=== PATIENT | male | born 1955 | race Caucasian/White ===

== ENCOUNTER 2020-05-17 23:56 | Emergency (ER) | payer BC ==
[~2020-05-17] VITALS: Ht 175.3 cm; Wt 108.0 kg
[2020-05-18] MEDS ORDERED: LISINOPRIL5 MG PO (00:17)
[2020-05-18] MEDS ORDERED: GLUCOPHAGE500 MG PO (00:18)
[2020-05-18] MEDS ORDERED: LISINOPRIL10 MG PO (00:18)
[2020-05-18] MEDS ORDERED: LIPITOR10 MG PO (00:19)
== END 2020-05-18 01:26 | disposition home or self-care (01) ==
LOC: ED 23:56
DX: R10.12 Left upper quadrant pain (principal); R31.9 Hematuria, unspecified; Z79.899 Other long term (current) drug therapy; Z79.84 Long term (current) use of oral hypoglycemic drugs
CPT/HCPCS: 74176; 80053; 81001; 83690; 85025; 96374; 96375; 99284-25; J1885; J2405

== ENCOUNTER 2025-03-10 11:59 | Emergency (ER) | payer BC ==
[~2025-03-10] VITALS: Ht 175.3 cm; Wt 75.0 kg
[~2025-03-10 11:59] MED LIST: ACETAMINOPHEN500 MG PO; ATORVASTATIN CA20 MG PO; COLCRYS0.6 MG PO; GLUCOPHAGE500 MG PO; HYDROXYZINE HCL25 MG PO; LIPITOR10 MG PO; LISINOPRIL10 MG PO; LISINOPRIL20 MG PO; LISINOPRIL5 MG PO; METFORMIN HCL750 MG PO; PERCOCET 5-3251 EACH PO; SERTRALINE HCL100 MG PO; SERTRALINE HCL25 MG PO; TAMSULOSIN HCL0.4 MG PO
[2025-03-10 12:09] LABS: BASOPHILS 0.1 % (0.2-1.2); EOSINOPHILS 0.1 % (0.8-7.0); LYMPHOCYTES 2.9 % (21.8-53.1); MCH 30.6 PG (25.7-32.2); MCHC 34.1 g/dL (32.3-36.5); MCV 89.9 fL (79.0-92.2); MONOCYTES 8.0 % (5.3-12.2); NEUTROPHILS 88.4 % (34.0-67.9); RBC 5.55 M/uL (4.63-6.08)
[2025-03-10 12:27] LABS: ALT (SGPT) 45.0 U/L (14-59); AST (SGOT) 87.0 U/L (15-37); GLOMERULAR FILTRATION RATE,EST 60.0 mL/min (>60); PROTEIN, TOTAL 7.5 g/dL (6.4-8.2); UREA NITROGEN 56.0 mg/dL (7-18)
[2025-03-10 15:28] LABS: BLOOD/HGB, URINE MODERATE (Negative); KETONE, URINE SMALL (Negative); LEUK ESTERASE, URINE NEGATIVE (negative); NITRITE, URINE NEGATIVE (negative)
[2025-03-10 15:35] LABS: BACTERIA, URINE NONE SEEN /hpf (negative); CASTS, URINE NONE SEEN \\lpf; CRYSTALS, URINE NONE SEEN (0-1+); EPITHELIAL CELLS, URINE SQUAMOUS 1+ /lpf (0-1+); REFLEX CULTURE, URINE No (No)
[2025-03-10] MEDS ORDERED: ACETAMINOPHEN 500 MG TAB PO ONE (17:15)
[2025-03-10 17:27] VITALS: BP 153/80
[2025-03-10] MEDS ORDERED: SODIUM CHLORIDE 0.9% 500 ML IV PRN (17:45)
--- NOTE | 2025-03-13 07:36 | EKG ---
[facility] [address] [facility] [place] [address] Signed Normal sinus rhythm Septal infarct (cited on or before 17-OCT-2022) Abnormal ECG When compared with ECG of 17-OCT-2022 07:32, Nonspecific T wave abnormality now evident in Inferior leads Nonspecific T wave abnormality, worse in Anterolateral leads QT has lengthened Confirmed by Roro Prather DO ([id number]) on 03/13/2025 7:36:31 AM Electronically Signed By: RORO PRATHER DO 03/13/25 0736 PATIENT NAME: DIXIE OTOOLE Electrocardiogram DATE OF : 51 PHYSICIAN: RORO PRATHER DO REPORT #: [id number] REPORT IS CONFIDENTIAL AND NOT TO BE RELEASED WITHOUT AUTHORIZATION
== END 2025-03-10 18:21 | disposition home or self-care (01) ==
LOC: ED 11:59
PROVIDERS: Emergency Medicine
DX: R53.1 Weakness (principal); E11.9 Type 2 diabetes mellitus without complications; I10 Essential (primary) hypertension; Z87.891 Personal history of nicotine dependence
CPT/HCPCS: 36415; 70450; 71045; 72125; 73030; 73502; 80053; 81001; 83735; 84484; 85025; 93005; 93010; 99285-25; A9270; J7040

== ENCOUNTER 2025-03-11 19:24 | Inpatient (IN) | payer BC ==
[~2025-03-11] VITALS: Ht 172.7 cm; Wt 78.0 kg
--- OUTSIDE RECORDS SUMMARY | 2025-03-11 19:31 | XMS ---
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 - 2 Visits in 30 Days CARE PROVIDERS There are no care providers on record at this time. Jaden has no Care Guidelines for this patient. Poly V[facility] (12 MO.) [facility] T[facility] 2 NOTE: Visits indicate total known visits. ED/C VISIT TRACKING (12 MO.) [facility] COMPLAINT: - FALL 03/10/2025 12:00 DAGO Mcclellan OR TYPE: Emergency COMPLAINT: - WEAKNESS INPATIENT VISIT TRACKING (12 MO.) No inpatient visits to display in this time frame [id number]
[2025-03-11 20:27] LABS: BASOPHILS 0.2 % (0.2-1.2); EOSINOPHILS 0 % (0.8-7.0); LYMPHOCYTES 4.3 % (21.8-53.1); MCH 30.5 PG (25.7-32.2); MCHC 33.9 g/dL (32.3-36.5); MCV 90.1 fL (79.0-92.2); MONOCYTES 8.8 % (5.3-12.2); NEUTROPHILS 86.3 % (34.0-67.9); RBC 4.85 M/uL (4.63-6.08)
[2025-03-11 20:43] LABS: ALT (SGPT) 52.0 U/L (14-59); AST (SGOT) 73.0 U/L (15-37); GLOMERULAR FILTRATION RATE,EST 69.0 mL/min (>60); PROTEIN, TOTAL 6.4 g/dL (6.4-8.2); UREA NITROGEN 52.0 mg/dL (7-18)
[2025-03-11] MEDS ORDERED: LACTATED RINGER'S 1,000 ML IV ONE ×2 (21:00→23:15)
[2025-03-11] MEDS ORDERED: ACETAMINOPHEN 500 MG TAB PO ONE (21:15)
[2025-03-11] MEDS ORDERED: KETOROLAC TROMETHAMINE 15 MG/ML VIAL IV ONE (23:45)
[2025-03-12 01:13] LABS: GLOMERULAR FILTRATION RATE,EST 74.0 mL/min (>60); UREA NITROGEN 45.0 mg/dL (7-18)
[2025-03-12] MEDS ORDERED: PANTOPRAZOLE SODIUM 40 MG/10 ML VIAL IV ONE (01:45)
[2025-03-12] MEDS ORDERED: LACTATED RINGER'S 1,000 ML IV ONE (02:00)
[2025-03-12] MEDS ORDERED: POTASSIUM CHLORIDE 10 MEQ TABCR PO ONE (02:00)
[2025-03-12] MEDS ORDERED: LIDOCAINE 2% VISCOUS 6 ML SYR TOP ONE (02:15)
[2025-03-12 02:35] LABS: BLOOD/HGB, URINE SMALL (Negative); KETONE, URINE SMALL (Negative); LEUK ESTERASE, URINE NEGATIVE (negative); NITRITE, URINE NEGATIVE (negative)
[2025-03-12 02:39] LABS: EPITHELIAL CELLS, URINE SQUAMOUS 1+ /lpf (0-1+)
[2025-03-12 02:40] LABS: BACTERIA, URINE RARE /hpf (negative); CASTS, URINE NONE SEEN \\lpf; CRYSTALS, URINE NONE SEEN (0-1+); REFLEX CULTURE, URINE No (No)
[2025-03-12 02:54] LABS: INR 1.1 (0.80-1.30); PROTIME 13.5 Sec (11.2-14.2)
[2025-03-12 03:32] LABS: ABO A; ANTIBODY SCREEN NEGATIVE; RH POSITIVE
[2025-03-12 04:50] LABS: BASOPHILS 0.4 % (0.2-1.2); EOSINOPHILS 1.6 % (0.8-7.0); LYMPHOCYTES 12.1 % (21.8-53.1); MCH 30.4 PG (25.7-32.2); MCHC 33.8 g/dL (32.3-36.5); MCV 90.1 fL (79.0-92.2); MONOCYTES 10.9 % (5.3-12.2); NEUTROPHILS 74.6 % (34.0-67.9); RBC 4.04 M/uL (4.63-6.08)
[2025-03-12] MEDS ORDERED: OXYCODONE HCL 5 MG TAB PO ONE ×2 (05:00→11:15)
[2025-03-12 05:05] LABS: GLOMERULAR FILTRATION RATE,EST 82.0 mL/min (>60); UREA NITROGEN 43.0 mg/dL (7-18)
[2025-03-12] MEDS ORDERED: LACTATED RINGER'S 1,000 ML IV SCH (06:00)
[2025-03-12 09:09] LABS: GLOMERULAR FILTRATION RATE,EST 91.0 mL/min (>60); UREA NITROGEN 38.0 mg/dL (7-18)
[2025-03-12] MEDS ORDERED: ACETAMINOPHEN 325 MG TAB PO PRN (13:00)
[2025-03-12 14:52] VITALS: BP 137/64
--- NOTE | 2025-03-12 15:32 | NUR ---
PATIENT TO UNIT VIA STRETCHER VIA NURSING. PATIENT TRANSFERRED TO BED VIA SLIDE SHEET. ASSESMENT COMPLETED, VITAL SIGNS COMPLETE, WEIGHT COMPLETE. LUNCH AT BEDSIDE. CALL LIGHT AND PERSONAL BELONGINGS IN REACH. PATIENT DENIES CONCERNS.
[2025-03-12 15:36] VITALS: BP 137/64
--- NOTE | 2025-03-12 16:49 | NUR ---
PATIENT IN BED, AT BEDSIDE. CALL LIGHT AND PERSONAL BELONGINGS IN REACH OF PATIENT. SCHEDULED MEDICATIONS ADMINISTERED.
[2025-03-12] MEDS ORDERED: ATORVASTATIN 20 MG TAB PO SCH (17:00)
[2025-03-12] MEDS ORDERED: PANTOPRAZOLE SODIUM 40 MG/10 ML VIAL IV SCH (17:41)
--- NOTE | 2025-03-12 17:47 | NUR ---
PATIENT IN BED, AT BEDSIDE. MD AT BEDSIDE. CALL LIGHT AND PERSONAL BELONGINGS IN REACH OF PATIENT. VERBAL ORDER RECEIVED TO CHANGE DIET TO CLEAR LIQUID.
[2025-03-12 18:38] VITALS: BP 146/62
--- NOTE | 2025-03-12 18:39 | NUR ---
PT CONFUSED, USED THE KIDNEY SHAPED SPIT BOWL FOR URINATING - MADE SURE THE URINAL WAS NEXT TO THE BED AND EDUCATED PT. HE CAN CARRY ON A CONVERSATION, BUT FORGETS THINGS VERY QUICKLY - FOR EXAMPLE HE ASKED MY NAME THREE TIMES ALMOST RIGHT IN A ROW. PT IN A GOOD MOOD. GAVE PT TWO GRANOLA BARS - HE DID NOT LIKE THE BQ PORK SERVED FOR DINNER. CALL LIGHT WITHIN REACH AND URINAL ON TABLE NEXT TO PT. PT HAS WATER AND REPORTS NEEDING NOTHING MORE AT THIS TIME.
--- NOTE | 2025-03-12 19:31 | NUR ---
REPORT RECEIVED FROM KVNG COFFMAN. pt RESTING IN BED AWAKE. IVF INFUSING WNL. pt DENIES NEEDS. BED ALARM SET AT THIS TIME.
[2025-03-12 20:02] VITALS: BP 138/96
--- NOTE | 2025-03-12 20:15 | NUR ---
BED ALARMING. PATIENT SCOOTING TOWARDS THE EDGE OF THE BED. 2 CERTIFIED SURGICAL FIRST ASSISTANT CHANGED WHOLE BED LINEN. CLEANED PATIENT. HUGH CARE DONE. FRESH PULL UPS PLACE AND GOWN. ROOM TIDIED. PATIENT SEEMED DIS ORIENTED AT THE START. PATIENT STATED "IM GOING DOWN STAIRS TO GET MY STUFF". PATIENT IS TALKATIVE. BED ALARM ON FOR SAFETY. THIS CERTIFIED SURGICAL FIRST ASSISTANT SHOWED THE CALL LIGHT BUTTON TO USE TO CALL FOR HELP FROM STAFF.
--- NOTE | 2025-03-12 20:20 | NUR ---
VSS. pt RESTING IN BED. ALERT AND ORIENTED TO ALL. CIWA 2, MILD TREMORS. pt RATES PAIN 9/10 IN RIGHT SHOULDER. ASSESSMENT COMPLETE. BOWEL TONES ACTIVE, ABD SOFT, NON-TENDER WITH PALPATION. IV SITE FLUSHED WNL. NEW BAG IVF INFUSING WNL PER ORDERS. SCDS ON. BED ALARM ON. CALL LIGHT IN REACH.
[2025-03-12 20:40] VITALS: BP 138/96
[2025-03-12] MEDS ORDERED: MELATONIN 3 MG TAB PO PRN (21:00)
[2025-03-12] MEDS ORDERED: LORazepam 2 MG/ML VIAL IV/IM PRN (21:00)
[2025-03-12 21:21] LABS: PHOSPHORUS, INORGANIC 2.4 mg/dL (2.5-4.9); TSH, 3RD GENERATION 0.415 uIU/mL (0.358-3.740)
[2025-03-12] MEDS ORDERED: HYDROCODONE/ACETA 5/325 TAB PO PRN (21:30)
--- NOTE | 2025-03-12 21:37 | NUR ---
PHONE CALL TO MD, UPDATED ON pt'S REPORTED PAIN. MD PLACING NEW ORDERS. AIRCRAFT SERVICER TO FLOOR FOR WRIST XRAY, UPDATED TO 3 VIEW PER PROTOCOL.
--- NOTE | 2025-03-12 23:21 | NUR ---
IV PUMP ALARMING. PUMP UNPLUGGED, PLUGGED IN. IVF INFUSING WNL. pt COMPLAINS OF PAIN. PRN MEDICATION AND LIDODERM PATCH ADMINISTERED.
[2025-03-12] MEDS ORDERED: LIDOCAINE HCL 4% 1 EACH PATCH TD SCH (23:30)
[2025-03-13] VITALS (12 sets, daily range): BP systolic 113–150; BP diastolic 63–89
--- NOTE | 2025-03-13 00:10 | NUR ---
PATIENT UP TO BATHROOM x2 USING 1P SBA WITH FWW TO VOID. PATIENT BACK TO BED. SCRATCH NOTED ON PATIENTS R BUTTOCK. ALLYVEN PLACED. PATIENT DENIES FURTHER NEEDS. CALL LIGHT IN REACH. BED ALARM ON.
--- NOTE | 2025-03-13 01:50 | NUR ---
pt DROWSY, RESTING IN BED. VSS. CONSENT SIGNED BY pt AND PLACED ON CHART. ABD ASSESSMENT COMPLETE. URINAL EMPTIED. NEW BAG IVF INFUSING WNL. CALL LIGHT IN REACH. BED ALARM ON. LIGHTS OFF IN ROOM.
--- NOTE | 2025-03-13 03:35 | NUR ---
CHECKED ON Pt, RESTING IN BED AWAKE WATCHING TV. NO DISTRESS NOTED.
--- NOTE | 2025-03-13 05:00 | NUR ---
bed alarm going off, pt attempting to get oob stating, "i have to go downstairs and get my stuff". pt reoriented to date/time. pt able to boost self back in bed, bed alarm resumed and call light in reach. urinal emptied, no additional needs.
--- NOTE | 2025-03-13 05:02 | NUR ---
PT AWAKE IN BED. CALL LIGHT WITHIN REACH. PT BELIEVES SOMEONE IS IN ROOM. PT MAKING CALLS FROM PERSONAL PHONE.
--- NOTE | 2025-03-13 05:15 | NUR ---
pt AWAKE, SENIOR ACTUARIAL ANALYST STATES pt REPORTS HALLUCINATIONS. NO HALLUCINATIONS REPORTED TO THIS RN AT THIS TIME. ALERT AND ORIENTED TO ALL. CIWA 3. PRN PAIN AND ANXIETY MEDICATION ADMINISTERED WITH SIP OF WATER. CALL LIGHT IN REACH. BED ALARM ON. LIGHTS OFF IN ROOM.
[2025-03-13 06:03] LABS: BASOPHILS 0.5 % (0.2-1.2); EOSINOPHILS 3.2 % (0.8-7.0); LYMPHOCYTES 12.8 % (21.8-53.1); MCH 30.5 PG (25.7-32.2); MCHC 34.0 g/dL (32.3-36.5); MCV 89.9 fL (79.0-92.2); MONOCYTES 11.5 % (5.3-12.2); NEUTROPHILS 71.5 % (34.0-67.9); RBC 4.06 M/uL (4.63-6.08)
[2025-03-13 06:18] LABS: ALT (SGPT) 43.0 U/L (14-59); AST (SGOT) 48.0 U/L (15-37); GLOMERULAR FILTRATION RATE,EST 96.0 mL/min (>60); PROTEIN, TOTAL 5.2 g/dL (6.4-8.2); UREA NITROGEN 19.0 mg/dL (7-18)
--- NOTE | 2025-03-13 07:40 | EKG ---
[facility] [address] [facility] [place] [address] Signed Sinus tachycardia with frequent premature ventricular complexes Anterior infarct (cited on or before 17-OCT-2022) Abnormal ECG When compared with ECG of 10-MAR-2025 12:17, (Unconfirmed) premature ventricular complexes are now present Questionable change in QRS axis Nonspecific T wave abnormality no longer evident in Inferior leads Nonspecific T wave abnormality no longer evident in Lateral leads QT has shortened Confirmed by Roro Prather DO ([id number]) on 03/13/2025 7:39:45 AM Electronically Signed By: RORO PRATHER DO 03/13/25 0740 PATIENT NAME: DIXIE OTOOLE Electrocardiogram DATE OF : 51 PHYSICIAN: RORO PRATHER DO REPORT #: [id number] REPORT IS CONFIDENTIAL AND NOT TO BE RELEASED WITHOUT AUTHORIZATION
--- NOTE | 2025-03-13 07:58 | NUR ---
PT AWAKE, ALERT AND ORINETED, SELINA, COOPERATIVE. MEDS GIVEN WITH SMALL AMOUNT OF WATER. IVF INFUSING LAC, PATCH TO L SHOULDER IN PLACE. CIWA DONE
[2025-03-13] MEDS ORDERED: MULTIVITAMINS THERAPEUTIC 1 EA TAB PO SCH (08:00)
[2025-03-13] MEDS ORDERED: FOLIC ACID 1 MG/0.2 ML ML IV SCH (08:00)
[2025-03-13] MEDS ORDERED: THIAMINE HCL 200 MG/2 ML VIAL IV SCH (08:00)
[2025-03-13] MEDS ORDERED: SODIUM PHOSPHATE 30 MMOL in DEXTROSE 5% 250 ML IV ONE (08:30)
[2025-03-13] MEDS ORDERED: MAGNESIUM SULFATE 2 GM/50 ML BAG IV ONE (08:30)
--- NOTE | 2025-03-13 08:38 | NUR ---
ciwa was 2. Bed alrms in place. visiting with female friend.
--- NOTE | 2025-03-13 08:58 | NUR ---
pt up to BRP 1PA, unsteady gait. voided, back to bed. tolerated well
[2025-03-13] MEDS ORDERED: TAMSULOSIN HCL 0.4 MG CAP PO SCH (09:00)
[2025-03-13] MEDS ORDERED: SERTRALINE HCL 50 MG TAB PO SCH (09:00)
[2025-03-13] MEDS ORDERED: LIDOCAINE HCL 4% 1 EACH PATCH TD SCH (09:00)
--- NOTE | 2025-03-13 09:20 | NUR ---
Spoke with Gonzales and his , Millie. They have been for many years. 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 He stays in his home and also does not answer his phone. He does state he saw his pcp in the last month or two. He has a walker. He is a and believes he is service connected. At this time, he plans on selling his home. He would like to go to [facility] for 20 days, then move closer to family near [place]. Per pt has LT Medicaid. When I asked them about the assessment, he does not remember any evaluations. I will contact [facility] and [facility]. Pt will have EGD today per Dr. Issa.
--- NOTE | 2025-03-13 10:31 | NUR ---
pt up in chair, medicated with 2 norco
--- NOTE | 2025-03-13 10:55 | NUR ---
DR TORRES IN ROOM
--- NOTE | 2025-03-13 11:20 | CONS ---
[facility] [address] [place], [place] [address] Signed DATE OF CONSULTATION: 03/12/2025 REQUESTING PHYSICIAN: Dr. Martin. PROBLEM: Melena and anemia (symptomatic). HISTORY: This 69-year-old white man lives in [place]. He is known to me from the past and undergone laparoscopic cholecystectomy in 2022. Quite notably, he underwent sigmoid colectomy my brother Artemio Torres in [place], [place] in 2008 for perforated diverticulitis. The patient is well aware of all that. He presented to the emergency room, was evaluated by Dr. Heck with at approximately 8:47 p.m., having been brought to the emergency room by EMS services, found "down on the floor" by a neighbor. The patient does live alone. He is but , she has not lived with him since May. She is caring for her elderly ailing mother and lives near [place]. The patient has been seen in emergency room the day before and brought into the hospital for a ground level fall. Radiographic workup included right shoulder, right hip CT scan of the C-spine, head, and chest x-ray, which was notable only for degenerative disease in cervical spine and severe osteoarthritis of the hip. He had no fractures. Labs on evaluation today showed a white count elevated at 17.2, creatinine of 1.27. His CBC showed an initial hematocrit of 36.9, but his hematocrit the day before was 43.7. The patient admits to persistent use of Motrin for epigastric pain. The patient was admitted for further evaluation and care. Quite notably, the patient does have some persistent epigastric pain. He has had no hematemesis. He denies dysphagia, but he has persistent epigastric pain otherwise. PAST MEDICAL HISTORY: Notable for a cholecystectomy as described as well as sigmoid colectomy emergently for perforation. He does have BPH symptoms. He also has hypertension. MEDICATIONS: Reported medications at time of admission include: 1. Flomax. 2. Sertraline. 3. Hydroxyzine. 4. Atorvastatin. 5. Colchicine. 6. Lisinopril. Electronically Signed By: JENNIFFER TORRES MD 03/13/25 1120 PATIENT NAME: DIXIE OTOOLE CONSULTATION DATE OF : 51 REPORT #: [id number] PHYSICIAN: JENNIFFER TORRES MD PCP: DALTON GODOY MD REPORT IS CONFIDENTIAL AND NOT TO BE RELEASED WITHOUT AUTHORIZATION [address] [address] Signed REVIEW OF SYSTEMS: He denies any shortness of breath or chest pain at this time. He has no dysphagia or dysuria. He definitely has had black stool. PHYSICAL EXAMINATION: GENERAL: This is an elderly white male with a full white lambert. He is very gregarious and engaging, but does have what might appear to be short-term memory loss to some degree. VITAL SIGNS: At time of my evaluation showed a blood pressure 134/68, pulse of 71, respirations 17, O2 saturation 100% on 2 L nasal cannula oxygen. Trachea is midline. CHEST: Clear. HEART: Regular without murmur. ABDOMEN: Nondistended, generally soft. There is no focal mass or tenderness. EXTREMITIES: No clubbing, cyanosis, or edema. ASSESSMENT: The patient very likely has a peptic ulcer, which he has been treating with Motrin instead of antiulcer medication. He now has what appears to be melena based on clinical history and his episodic hypotension previously noted by the emergency room and with a fall in hematocrit to 34.8. Quite notably yesterday at about the same time is 43.7. His platelet count is lower at 118,000, previously 173,000. The patient needs upper endoscopy to affirm the diagnosis. In the meantime, treatment with PPI medication and very likely Carafate would be appropriate. Review of his medications at admission currently includes Flomax, sertraline, pantoprazole IV, hydroxyzine, atorvastatin, melatonin, Tylenol, Zofran, and infusion of Ringer's lactate solution at 200 mL an hour. We will plan for upper endoscopy tomorrow probably mid day. The risk of bleeding, infection, and perforation were reviewed with him in this regard. He will certainly have a CBC in the morning as well. If the patient should " cut loose" with bledding then more urgent endoscopic intervention can be done. Jenniffer Torres MD JM/MODL /[id number] Electronically Signed By: JENNIFFER TORRES MD 03/13/25 1120 PATIENT NAME: DIXIE OTOOLE CONSULTATION DATE OF : 51 REPORT #: [id number] PHYSICIAN: JENNIFFER TORRES MD PCP: DALTON GODOY MD REPORT IS CONFIDENTIAL AND NOT TO BE RELEASED WITHOUT AUTHORIZATION [address] [address] Signed cc: Dr. Mario Heck Copies: ~ Electronically Signed By: JENNIFFER TORRES MD 03/13/25 1120 PATIENT NAME: DIXIE OTOOLE CONSULTATION DATE OF : 51 REPORT #: [id number] PHYSICIAN: JENNIFFER TORRES MD PCP: DALTON GODOY MD REPORT IS CONFIDENTIAL AND NOT TO BE RELEASED WITHOUT AUTHORIZATION
[2025-03-13] MEDS ORDERED: PHARMACY RENAL DOSE ADJUSTMENT 1 DOSE MISC PO SCH (12:00)
[2025-03-13] MEDS ORDERED: LIDOCAINE HCL 2% 5 ML SDV ONE (12:49)
[2025-03-13] MEDS ORDERED: POLYETHYLENE GLYCOL 3350 BOTTLE PO ONE (13:30)
--- NOTE | 2025-03-13 13:36 | NUR ---
03/13/25 1336 [place] 1318-PATIENT ARRIVED TO PACU ON 4L NC RR EVEN. PATIENT REACTIVE TO VERBAL STIMULI EYES CLOSED NOT FOLLOWING COMMANDS. IVF INFUSING. SR HR 70'S. 1320-PATIENT CONTINUES TO HAVE EYS CLOSED TRYING TO GET BP ON RIGHT ARM AND PATIENT BENDING RIGHT ARM NOT FOLLOWING COMMANDS. ISAIAH BRAVO AT BEDSIDE ASSISTING. PATIENT ORIENTED TO PACU 1325-ABLE TO GET BP READING. PATIENT OPENING EYES REPORTS "OW" WHEN RN ASKED PATIENT REPORT" MY RIGHT HIP HURTS AT TIMES" PATIENT REPOSITIONING SELF IN BED. GLUCOSE CHECKED 93 1332-PATIENT AWAKE RA 96% RR EVEN. MOVING ALL EXTRMITIES ORIENTED TO PACU PATIENT IS ORIENTED X3.
--- NOTE | 2025-03-13 13:45 | NUR ---
PT STILL IN OR
--- NOTE | 2025-03-13 14:07 | NUR ---
1400 back to room for pacu
--- NOTE | 2025-03-13 14:32 | NUR ---
Spoke with aNt at the [facility]. Pt is not service connected and also is not established with the VA programs. I then spoke with Alva Barajas at [facility]. Pt was seen by [facility], but has not completed any assessments for LT Medicaid. The did call, but declined an assessment when she was notified they would also look at her resources since they are still . I will fu with [place].
--- NOTE | 2025-03-13 14:57 | NUR ---
AWAKE, ON ROOM AIR, CPOX ON, IV WENT BACD, WILL RESTART. NO C/O PAIN, VISITING WITH FAMILY. AWARE OF NEED TO DRINK 2 BOTTLES OF GATORADE PER BOWEL CARE PRIOR TO COLONOSPCOPY IN AM, STATED UNDERSTANDING
--- NOTE | 2025-03-13 15:35 | NUR ---
awake, new iv site RA
--- NOTE | 2025-03-13 15:39 | NUR ---
Spoke with Millie and Gonzales. He is getting a new IV start. She spoke with the [facility] by phone and [facility]. She hoping to get Gonzales established with the Va within 20 days. She does not want to provide her financial info to the state as they are still . She is leaving in the AM to go to [place] as her mom is ill. She asks I call her for info.
--- NOTE | 2025-03-13 18:05 | NUR ---
pt working with PT, up to BRp, incontinent of large amount of soft stool, skin care and gown changed, back to chair, IVf infusing w/o problems, cpox at bedside, on clear liquids. Medicated with 2 [place] per 8/10 R shoulder pain
--- NOTE | 2025-03-13 19:32 | NUR ---
REPORT RECEIVED FROM DAY SHIFT RN. PATIENT RESTING IN BED. BED ALARM ON. CALL LIGHT IN REACH.
--- NOTE | 2025-03-13 20:23 | NUR ---
PT LYING IN BED WATCHING TV. VITALS DONE, CALL LIGHT IN REACH WITH NO NEEDS AT THIS TIME.
[2025-03-13] MEDS ORDERED: LIDOCAINE PATCH REMOVAL 1 EA TD SCH (21:00)
--- NOTE | 2025-03-13 21:54 | NUR ---
BED ALARM ANSWERED. PT NEEDED TO USE BATHROOM. ASSISTANT HALL DIRECTOR 1PA WITH FWW TO BATHROOM. PT HAD BM AND ASSISTED BACK TO BED. PT STATES NO FURTHER NEEDS AT THIS TIME. CALL LIGHT WITHIN REACH AND BED ALARM ON.
--- NOTE | 2025-03-13 22:35 | NUR ---
BED ALARM ANSWERED. PT NEEDED TO USE BATHROOM. PT 1PA WITH FWW TO BATHROOM. PT HAD BM AND ASSISTED BACK TO BED. PT REMINDED OT KEEP DRINKING THE BOWL PREP GATORADE. PT STATES NO FURTHER NEEDS AT THIS TIME. CALL LIGHT WITHIN REACH AND BED ALARM ON.
--- NOTE | 2025-03-13 22:47 | NUR ---
PATIENT REQUESTING PAIN MEDICATION FOR 12/23 R SHOULDER/BACK PAIN. PRN PAIN MEDICATION ADMINISTERED PER PATIENT REQUEST. IV INFUSING WNL. PATIENT DENIES FURTHER NEEDS. CALL LIGHT IN REACH. BED ALARM ON.
--- NOTE | 2025-03-13 23:01 | NUR ---
CALL LIGHT ANSWERED. PATIENT UP TO BED USING 1P SBA AND FWW TO HAVE BM. PATIENT BACK TO BED. PATIENT DENIES FURTHER NEEDS AT THIS TIME. BED ALARM ON. CALL LIGHT IN REACH.
[2025-03-14] VITALS (15 sets, daily range): BP systolic 114–152; BP diastolic 68–98
--- NOTE | 2025-03-14 00:05 | NUR ---
x2 BOWEL PREP BOTTLES COMPLETED. PATIENT NPO AT THIS TIME.
--- NOTE | 2025-03-14 01:24 | NUR ---
CHEMICAL MAKER OBTAINED VITALS AND I&O. PT STATES NO NEEDS AT THIS TIME. CALL LIGHT WITHIN REACH AND BED ALARM ON.
--- NOTE | 2025-03-14 03:43 | NUR ---
PATIENT RESTING IN BED ON BACK WITH EYES CLOSED. RESPIRATIONS EVEN AND UNLABORED. CALL LIGHT IN REACH.
--- NOTE | 2025-03-14 05:32 | NUR ---
PT LYING IN BED WATCHING TV. VITALS DONE. CALL LIGHT IN REACH, NO NEEDS AT THIS TIME.
[2025-03-14 05:37] LABS: BASOPHILS 0.4 % (0.2-1.2); EOSINOPHILS 5.1 % (0.8-7.0); LYMPHOCYTES 13.3 % (21.8-53.1); MCH 30.4 PG (25.7-32.2); MCHC 34.0 g/dL (32.3-36.5); MCV 89.6 fL (79.0-92.2); MONOCYTES 12.9 % (5.3-12.2); NEUTROPHILS 67.9 % (34.0-67.9); RBC 4.04 M/uL (4.63-6.08)
[2025-03-14 05:58] LABS: ALT (SGPT) 42.0 U/L (14-59); AST (SGOT) 41.0 U/L (15-37); GLOMERULAR FILTRATION RATE,EST 98.0 mL/min (>60); PHOSPHORUS, INORGANIC 3.6 mg/dL (2.5-4.9); PROTEIN, TOTAL 5.1 g/dL (6.4-8.2); UREA NITROGEN 13.0 mg/dL (7-18)
[2025-03-14] MEDS ORDERED: MORPHINE SULFATE 4 MG/ML VIAL IV PRN (06:15)
--- NOTE | 2025-03-14 06:15 | NUR ---
RETURN PHONE CALL FROM DR TORRES. pt REQUESTING PAIN MEDICATION AND IS NPO FOR PLANNED SCOPE. TELEPHONE ORDER READ BACK FOR MORPHINE IV 2-4MG Q1H PRN FOR PAIN.
--- NOTE | 2025-03-14 06:20 | OR ---
[facility] [address] [place], [place] [address] Signed DATE OF OPERATION: 03/13/2025 SURGEON: Jenniffer Trores MD PREOPERATIVE DIAGNOSIS: Melena with epigastric pain and excessive NSAID use. POSTOPERATIVE DIAGNOSES: 1. No evidence of ulcer or neoplasm of stomach, esophagus or duodenum. 2. Possible healed Liyah-Middleton tear. PROCEDURE: Upper endoscopy with biopsy. ANESTHESIA: Intravenous sedation, propofol, Gerard Church CRNA. INDICATION: This 69-year-old white man is a patient of Dr. Dalton Godoy and admitted by Dr. Martin as the patient presented to the emergency room with tachycardia, hypotension and reported black stool. He had no hematemesis. In this presentation, hematocrit was 43.7, which drifted to 36.5 by today. He has had no melena since admission or hematemesis. The patient has been taking Motrin for persistent epigastric pain and has not been on any antiulcer medication prior to his evaluation and treatment at [facility] at this time. He is now to undergo upper endoscopy to identify source of upper gastrointestinal bleeding. He understands the risk of bleeding, infection, and perforation and wished to proceed. FINDINGS: There was no lesion to account for the bleeding. However, there was a small lesion of the distal esophagus, which was linear in configuration and may or may not represent a healed or healing Liyah-Middleton tear. There is certainly no blood in the GI tract. Stomach and duodenum, and esophagus were otherwise normal. There was some question of superficial venous channels of the mid esophagus, but no linda varices so far as could be told. DESCRIPTION OF PROCEDURE: The patient was brought to the surgical endoscopy suite and placed in lateral decubitus position, given topical lidocaine after pharyngeal anesthesia. He was given intravenous sedation with propofol infusional technique. A bite block was placed. An Olympus video Electronically Signed By: JENNIFFER TORRES MD 03/14/25 0520 Electronically Signed By: JENNIFFER TORRES MD 03/14/25 1459 PATIENT NAME: DIXIE OTOOLE OPERATIVE REPORT DATE OF : 51 REPORT #: [id number] PHYSICIAN: JENNIFFER TORRES MD PCP: DALTON GODOY MD REPORT IS CONFIDENTIAL AND NOT TO BE RELEASED WITHOUT AUTHORIZATION [facility] [address] [place], [place] [address] Signed upper endoscope was passed in the hypopharynx. The vocal cords were normal. Scope was passed in the esophagus, which on first evaluation appeared normal. Scope was passed in the stomach, which was insufflated with air. There was no sign of coffee-ground material nor blood or any other abnormality. The pylorus was normal. Scope was passed through into the duodenum. The second and third portions of the duodenum were normal as was the bulbar portion. The scope was withdrawn and biopsies taken of the antrum for both REBEL and pathologic testing. Retroflexed view showed a small hiatal hernia. There was no sign of gastric varices or lesion more proximally. The scope was straightened and withdrawn to the distal esophagus where a somewhat linear appearing mucosal lesion was noted. Photographs were taken and biopsies were obtained as well. This may represent a healing Liyah-Middleton tear, but it certainly was not acute and absolutely was not bleeding. Additional biopsies were taken. Further withdrawal showed no other findings of concern. The scope was removed. The patient was taken to recovery room in good condition. CONCLUDING DIAGNOSIS: No clear evidence of lesion on upper gastrointestinal endoscopy that would account for bleeding, particularly melena. PLAN: We will plan for colonoscopy tomorrow after bowel prep today. MD CESAR Jimenez/DIMITRIOSL /[id number] cc: MD Dr. Mario Tiwari Copies: DALTON GODOY DMD ~ Electronically Signed By: JENNIFFER TORRES MD 03/14/25 0520 Electronically Signed By: JENNIFFER TORRES MD 03/14/25 1459 PATIENT NAME: DIXIE OTOOLE OPERATIVE REPORT DATE OF : 51 REPORT #: [id number] PHYSICIAN: JENNIFFER TORRES MD PCP: DALTON GODOY MD REPORT IS CONFIDENTIAL AND NOT TO BE RELEASED WITHOUT AUTHORIZATION
--- NOTE | 2025-03-14 06:38 | NUR ---
CALL LIGHT ANSWERED. PT NEEDED TO USE BATHROOM. ORTHO TECH 1PA WITH FWW TO BATHROOM. PT VOIDED AND HAD BM. PT ASSISTED BACK TO BED. PT STATES NO FURTHER NEEDS AT THIS TIME. CALL LIGHT WITHIN REACH AND BED ALARM ON.
--- NOTE | 2025-03-14 06:50 | NUR ---
NEW IVF BAG HUNG PER ORDER. PAIN MEDICATION GIVEN FOR 8/10 PAIN PER REQUEST OF PRIMARY RN AND PATIENT REQUEST. PATIENT RESTING IN BED AND WATCHING TV. IVF CONINTUING TO INFUSE WITHOUT DIFFICULTY, RESPIRATIONS EVEN AND UNLABORED. NO NEEDS, CALL LIGHT IN REACH
[2025-03-14] MEDS ORDERED: CEFAZOLIN SODIUM 2 GM in SODIUM CHLORIDE 0.9% 100 ML IV SCH (07:00)
--- NOTE | 2025-03-14 07:27 | NUR ---
Pt awake, watching tv, no c/o pain at this time. Repositions self in bed. IVF infsing w/o problems. Tolerating NPO status. repositions self in bed.
--- NOTE | 2025-03-14 07:42 | NUR ---
PATIENT IN BED AT THIS TIME. FINANCIAL SECRETARY CHARTED HOURLY ROUNDS. PATIENT DECLINED CHAIR AT THIS TIME. CALL LIGHT WITHIN REACH, NO FURTHER NEEDS.
--- NOTE | 2025-03-14 08:00 | NUR ---
UR CLINICAL REVIEW: MEETS INPT FOR SUBSTANCE-RELATED DISORDERS FOR ETOH RECURRENT FALLS, HALLUCINATIONS NOTED, TREMORS, HISTORY OF WITHDRAWAL WITH SEIZURES, STATES INABILITY TO CARE FOR SELF, PT/OT STATES SNF NEEDED NEED FOR IV FLUIDS, IV MEDS [facility] PPO INPT 03/12/25 @ 1304 ORDER MATCHES REG AUTH PENDING, CLINICALS SENT 03/13/25 DC TO SNF WHEN MEDICALLY READY 03/19/25
--- NOTE | 2025-03-14 08:07 | NUR ---
DC REVIEW: CONTINUES TO NEED IV FLUIDS, COLONOSCOPY TODAY, PLANNING FOR SNF PLACEMENT AT DC SPOUSE WORKING ON PLACEMENT IN ASSISTED LIVING AFTER DC ADD: 03/18/25
--- NOTE | 2025-03-14 09:52 | NUR ---
PATIENT IN BED AT THIS TIME. CHIEF DIETITIAN CHARTED VITALS AND I&O'S. CALL LIGHT WITHIN REACH, NO FURTHER NEEDS.
[2025-03-14] MEDS ORDERED: POTASSIUM CHLORIDE 10 MEQ TABCR PO ONE (10:00)
[2025-03-14] MEDS ORDERED: MAGNESIUM SULFATE 2 GM/50 ML BAG IV ONE (10:00)
--- NOTE | 2025-03-14 10:32 | NUR ---
UPDATES SENT TO [facility] AND [facility]. PENDING SNF ACCEPTANCE.
[2025-03-14] MEDS ORDERED: CELEBREX200 MG PO (10:55)
--- NOTE | 2025-03-14 11:55 | NUR ---
MED REC COMPLETE
--- NOTE | 2025-03-14 13:43 | NUR ---
working with PT and speech therapy in room, Still NPO waiting to go down for colonoscopy
--- NOTE | 2025-03-14 14:01 | NUR ---
Pt in chair, working with ST. Up to BRP, small liquid bm. voidied QS using urinal. Tolerating NPO status. Pleasant and cooperative. Down to OR via stretcher at thist grecia.
[2025-03-14] MEDS ORDERED: LIDOCAINE HCL 2% 5 ML SDV ONE ×2 (14:15→15:01)
--- NOTE | 2025-03-14 14:46 | NUR ---
03/14/25 1446 Magui Yee PATIENT ARRIVES IN PACU WITH ORAL AIRWAY IN PLACE. HE IS UNRESPONSIVE TO MY VOICE AND TOUCH. HE IS MOVING HIS ARMS AND LEGS IN A SPORADIC FASHION.
[2025-03-14] MEDS ORDERED: ROCURONIUM BROMIDE 50 MG/5 ML SYR ONE (15:06)
[2025-03-14] MEDS ORDERED: fentaNYL citrate 100 MCG/2 ML VIAL ONE (15:06)
[2025-03-14] MEDS ORDERED: SUCCINYLCHOLINE IN 0.9% NACL 200 MG/10 ML SYRINGE ONE (15:06)
[2025-03-14] MEDS ORDERED: DEXAMETHASONE SOD PHOS 4 MG/ML VIAL ONE (15:09)
--- NOTE | 2025-03-14 15:13 | NUR ---
back from PACU
--- NOTE | 2025-03-14 16:41 | NUR ---
IN BED C/O R HIP, BACK AND TESTICLULAR PAIN. MEDICATED WITH 2 NORCO
--- NOTE | 2025-03-14 17:48 | NUR ---
sitting up edge of bed eating, no further c/o. On room air, CPOX at bedside post op. uring urinal, voiding QS, much more alert and oriented.
--- NOTE | 2025-03-14 18:29 | NUR ---
pt calm, watchingt tv, playing with phone. on room air, post op cpox at bedside. IVF infusing w/o problems. using urinal, no further c/opain, lidocaine patch R shoulde rin place. Ate 25% dinner, tolerating liquids well. customer supply chain analyst in room earlier talking to pt. Ensure with meals added per customer supply chain analyst. Pt repositions self in bed
--- NOTE | 2025-03-14 19:53 | NUR ---
REPORT RECEIVED FROM PEPE CALDERON. pt RESTING IN THE BED. BOARD UPDATED. pt DENIES ANY NEEDS AT THIS TIME. CALL LIGHT WITHIN REACH.
--- NOTE | 2025-03-14 20:35 | NUR ---
PT LYING IN BED WATCHING TV. VITALS DONE, URINAL EMPTIED, WATER REFILLED. CALL LIGHT IN REACH, NO NEEDS AT THIS TIME.
--- NOTE | 2025-03-14 21:20 | NUR ---
ASSESSMENT AND VITAL SIGNS DONE. pt C/O 11/22 PAIN. PRN PAIN MEDS ADMINISTERED. pt RESTING IN THE BED. IV ASSESSED, WNL. ICE WATER REFRESHED. pt DENIES ANY OTHER NEEDS AT THIS TIME. CALL LIGHT WITHIN REACH.
--- NOTE | 2025-03-14 23:42 | NUR ---
pt RESTING IN THE BED WITH EYES CLOSED. RR EVEN AND UNLABORED. CALL LIGHT WITHIN REACH.
[2025-03-15] VITALS (9 sets, daily range): BP systolic 109–160; BP diastolic 48–78
--- NOTE | 2025-03-15 01:29 | NUR ---
DIRECTOR SOFTWARE DEVELOPMENT OBTAINED VITALS AND I&O. PT STATES NO NEEDS AT THIS TIME. CALL LIGHT WITHIN REACH AND BED ALARM ON.
--- NOTE | 2025-03-15 01:53 | NUR ---
VITAL SIGNS DONE. pt RESTING IN THE BED. pt DENIES ANY NEEDS AT THIS TIME. CALL LIGHT WITHIN REACH.
--- NOTE | 2025-03-15 03:34 | NUR ---
pt RESTING IN THE BED WITH EYES CLOSED. RR EVEN AND UNLABORED. CALL LIGHT WITHIN REACH.
--- NOTE | 2025-03-15 04:02 | NUR ---
PT MEDICATED W/ 2 PRN NORCO TABS FOR C/O RIGHT SCIATICA PAIN
--- NOTE | 2025-03-15 07:04 | NUR ---
REPORT RECEIVED FROM BASS FISHER KVNG JAIME. PATIENT IS LYING IN BED WITH EYES CLOSED AND RESPIRATIONS ARE EVEN AND UNLABORED. CALL LIGHT AND PERSONAL BELONGINGS ARE WITHIN REACH.
--- NOTE | 2025-03-15 07:15 | NUR ---
FAXED UPDATES TO [facility]
[2025-03-15] MEDS ORDERED: FOLIC ACID 1 MG TAB PO SCH (08:00)
[2025-03-15] MEDS ORDERED: THIAMINE HCL 100 MG TAB PO SCH (08:00)
--- NOTE | 2025-03-15 08:37 | NUR ---
PATIENT IS LYING IN BED WITH EYES OPEN AND RESPIRATIONS ARE EVEN AND UNLABORED. PATIENT REPORTS HER PAIN IS A 9/10 IN THE RIGHT LEG/GROIN. PATIENT IS REQUESTING SOMETHING FOR PAIN. PATIENT STATED NO FURTHER NEEDS AT THIS TIME. CALL LIGHT AND PERSONAL BELONGINGS ARE WITHIN REACH.
--- NOTE | 2025-03-15 09:17 | NUR ---
CLEANED UP ROOM. PT AMBULATED TO THE TOILET. PT DID ORAL CARE, SKIN CARE AND AM CARE. PARTIAL LINEN CHANGE COMPLETED. TRASH REMOVED FROM ROOM.
--- NOTE | 2025-03-15 09:35 | NUR ---
SPOKE WITH [facility] THIS AM REGARDING PATIENT. THEY CAN ACCEPT, THEY ARE CURRENTLY WORKING ON INSURANCE AUTHORIZATION. PATIENT, RN AND DR. CASTRO UPDATED.
--- NOTE | 2025-03-15 10:19 | NUR ---
PATIENT IS LYING IN BED WITH HOB ELEVATED. PATIENT WITH EYES OPEN AND RESPIRATIONS ARE EVEN AND UNLABORED. PATIENT IS WATCHING TV. CALL LIGHT AND PERSONAL BELONGINGS ARE WITHIN REACH.
--- NOTE | 2025-03-15 12:14 | OR ---
[facility] [address], [place] [address] Signed DATE OF OPERATION: 03/14/2025 SURGEON: Jenniffer Torres MD PREOPERATIVE DIAGNOSIS: Recent melena, normal upper endoscopy. POSTOPERATIVE DIAGNOSIS: Sigmoid diverticulosis, no evidence of lesion to account for bleeding. No active bleeding. PROCEDURE: Total colonoscopy to cecum. ANESTHESIA: Intravenous sedation, propofol infusion, Aguila Roberts CRNA. INDICATIONS: This 69-year-old white man was admitted by the hospitalist, Dr. Martin with reports of dark black stool considered melena and a falling hematocrit from 45 to 37. He had no associated hematemesis, but he did note that he had been taking increasing doses of nonsteroidal medication for epigastric pain, which of course did not help. He did undergo upper endoscopy yesterday, which showed a linear limited lesion of the esophagogastric junction, which may or may not have represented a healing Liyah-Middleton tear. There were no other findings of note, and certainly no sign of active or recent bleeding. On the basis of those findings or lack thereof, I have recommended colonoscopy being undertaken. The risks of bleeding, infection, and perforation were reviewed with him. He understands and wished to proceed. FINDINGS: The prep was good. Complete colonoscopy was undertaken of the cecum with full intubation of the cecum. He had diverticula of the sigmoid and left colon, but no polyps, colitis, or other cause of bleeding. Retroflexed view did confirm some internal hemorrhoidal changes. DESCRIPTION OF PROCEDURE: The patient was brought to the endoscopy suite and placed in lateral decubitus position, given intravenous sedation to the point of slurred speech and nystagmus with full cardiopulmonary monitoring by the Therapeutic Dietitian with propofol for sedation. Digital rectal examination was normal. Electronically Signed By: JENNIFFER TORRES MD 03/15/25 1214 PATIENT NAME: DIXIE OTOOLE OPERATIVE REPORT DATE OF : 51 REPORT #: [id number] PHYSICIAN: JENNIFFER TORRES MD PCP: DALTON GODOY MD REPORT IS CONFIDENTIAL AND NOT TO BE RELEASED WITHOUT AUTHORIZATION [facility] [address] [place], [place] [address] Signed An Olympus video colonoscope was passed in the rectum and manipulated throughout the colon ultimately intubating the cecum itself. The ileocecal valve and appendiceal orifice were normal. The scope was withdrawn from that point. Examination throughout showed no sign of abnormality other than sigmoid and left-sided diverticulosis. Retroflexed view of the rectum was normal. The scope was straightened, withdrawn, and removed. The patient was taken to recovery room in good condition. CONCLUDING DIAGNOSIS: No lesion to account for melena; it may be he did have diverticulosis, some internal hemorrhoids and on upper endoscopy, what appeared to be possibly a healing Liyah-Middleton tear. He will re-initiate a regular diet. MD CESAR Jimenez/ALLEN /[id number] cc: Dr. Martin Copies: ~ Electronically Signed By: JENNIFFER TORRES MD 03/15/25 2262 PATIENT NAME: XIANGDIXIE J OPERATIVE REPORT DATE OF : 51 REPORT #: [id number] PHYSICIAN: JENNIFFER TORRES MD PCP: DALTON GODOY MD REPORT IS CONFIDENTIAL AND NOT TO BE RELEASED WITHOUT AUTHORIZATION
--- NOTE | 2025-03-15 12:20 | NUR ---
PATIENT IS LYING IN BED WITH HOB ELEVATED. PATIENT IS ON ROOM AIR. PATIENT WITH EYES OPEN AND RESPIRATIONS ARE EVEN AND UNLABORED. PATIENT REPORTS "FEELING WELL". PATIENT STATED NO FURTHER NEEDS AT THIS TIME. CALL LIGHT AND PERSONAL BELONGINGS ARE WITHIN REACH.
--- NOTE | 2025-03-15 12:20 | NUR ---
SPOKE WITH PATIENT REGARDING DENIAL. ALSO UPDATED NURSING STAFF AND DR. CASTRO. CALLED AND SPOKE WITH ROSA ISELA DATA SUPPORT ANALYST, INFORMED HER OF SNF DENIAL AND PATIENT NEED FOR SNF. STATES SHE WILL REACH OUT TO THE UR DEPT AND GET MORE INFORMATION.
--- NOTE | 2025-03-15 13:01 | NUR ---
SPOKE WITH PATIENT DECORATING MACHINE TENDER THROUGH [facility]. THEY HAVE NOT OFFICIALLY DENIED SNF STAY AND RECOMMEND AN MD REVIEW FOR SNF, SO PATIENT CAN NOT APPEAL THE DECISION BECAUSE THERE IS NO DECISION OFFICIALLY DOCUMENTED FOR HIS CASE WITH HIS INSURANCE AGENCY. CALLED ARLIN AT [facility] TO DISCUSS THIS. NO ANSWER, MESSAGE LEFT TO PLEASE CALL BACK.
--- NOTE | 2025-03-15 13:25 | NUR ---
SPOKE WITH ARLIN AT [facility], SHE IS GOING TO RESUBMIT FOR AUTH FOR SNF STAY. PATIENT IS UPDATED.
--- NOTE | 2025-03-15 18:04 | NUR ---
Pt up in chair, legs elevated, no c/o pain, eating, IVf infusing w/o problems
--- NOTE | 2025-03-15 18:48 | NUR ---
pt resting in bed. took out trash and got pt fresh ice water. pt has tv on and is on ipad. call light within reach and pt reports needing nothing more at this time.
--- NOTE | 2025-03-15 18:50 | NUR ---
PATIENT IN BED AT THIS TIME. THIS MASTER AUTOMOTIVE GLASS TECHNICIAN ASSISTED PATIENT INTO BATHROOM AND THEN BACK TO BED. CALL LIGHT WITHIN REACH, NO FRUTHER NEEDS AT THIS TIME.
--- NOTE | 2025-03-15 19:10 | NUR ---
REPORT RECEIVED FROM PEPE CALDERON. pt RESTING IN THE BED. BOARD UPDATED. pt DENIES ANY OTHER NEEDS AT THIS TIME. CALL LIGHT WITHIN REACH.
--- NOTE | 2025-03-15 21:20 | NUR ---
ASSESSMENT AND VITAL SIGNS DONE. pt C/O 01/23 PAIN. PRN PAIN MEDS ADMINISTERED. BOWEL TONES ACTIVE. pt DENIES ANY NEEDS AT THIS TIME. IV ASSESSED, WNL. CALL LIGHT WIHTIN REACH. IVF INFUSING PER ORDER. URINAL EMPTIED.
--- NOTE | 2025-03-15 23:37 | NUR ---
pt RESTING IN THE BED WITH EYES CLOSED. RR EVEN AND UNLABORED. CALL LIGHT WITHIN REACH.
[2025-03-16] VITALS (10 sets, daily range): BP systolic 106–145; BP diastolic 69–80
--- NOTE | 2025-03-16 01:29 | NUR ---
pt RESTING IN THE BED WITH EYES CLOSED. NEW BAG OF IVF INFUSING PER ORDER. NO OTHER NEEDS AT THIS TIME. CALL LIGHT WITHIN REACH.
--- NOTE | 2025-03-16 03:12 | NUR ---
pt RESTING IN THE BED WITH EYES CLOSED. RR EVEN AND UNLABORED. CALL LIGHT WITHIN REACH.
--- NOTE | 2025-03-16 06:01 | NUR ---
IN RM TO DO VITAL SIGNS. URINAL EMPTIED. pt DENIES ANY OTHER NEEDS AT THIS TIME. CALL LIGHT WITHIN REACH.
--- NOTE | 2025-03-16 07:38 | NUR ---
RECEIVED REPORT FROM KVNG JAIME. PT LAYING IN BED REPORTS WANTING A WARM BLANKET, GIVEN. REPORTS NO OTHER NEEDS AT THIS TIME, CALL LIGHT WITHIN REACH.
--- NOTE | 2025-03-16 09:25 | NUR ---
IV FLUIDS DC'D PER ORDER, PT STATES NO NEEDS AT THIS TIME, CALL LIGHT WITHIN REACH.
--- NOTE | 2025-03-16 11:10 | NUR ---
PT REPORTS LIDOCAINE PATCH AND PRN PAIN MED HAS HELPED WITH HIS SCIATICA, URINAL EMPTIED. NO OTHER NEEDS AT THIS TIME, CALL LIGHT WITHIN REACH.
--- NOTE | 2025-03-16 12:35 | NUR ---
ASSISTED PT IN SETTING UP TRAY, REPORTS NO NEEDS AT THIS TIME, CALL LIGHT WITHIN REACH.
--- NOTE | 2025-03-16 13:50 | NUR ---
PT SITTING UP IN CHAIR WATCHING TV, COMMODITY BUYER AT BEDSIDE, NO NEEDS AT THIS TIME, CALL LIGHT WITHIN REACH.
--- NOTE | 2025-03-16 14:40 | NUR ---
PHYSICAL THERAPY WORKING WITH PT AT BEDSIDE. NO OTHER NEEDS AT THIS TIME, CALL LIGHT WITHIN REACH.
--- NOTE | 2025-03-16 19:49 | NUR ---
GOT REPORT FROM DAY SHIFT NURSE.
--- NOTE | 2025-03-16 20:33 | NUR ---
PT LYING BED WATCHING TV. VITALS DONE, DECLINED PM CARES AT THIS TIME. CALL LIGHT IN REACH, NO NEEDS AT THIS TIME.
--- NOTE | 2025-03-16 21:54 | NUR ---
INTO PATIENTS ROOM, PATIENT VERY TALKATIVE. ADVISED THIS NURSE THAT HE LIVES ALONE SO WHEN HE SEES PEOPLE HE LOVES TO TALK. PAIN MEDICATIONS GIVEN, 12/23 ON THE HIP. PATIENT ON RA. WATER AT BEDSIDE, SL CURRENTLY. PATIENT WATCHING TV. LIGHTS TURNED OFF. LIDOCAINE PATCH WAS REMOVED. PT DENIES ANY OTHER CARES, BED IN LOW POSITION.
--- NOTE | 2025-03-16 23:42 | NUR ---
Patient currently sleeping, regular respirations noted.
[2025-03-17] VITALS (9 sets, daily range): BP systolic 115–139; BP diastolic 57–96
--- NOTE | 2025-03-17 02:23 | NUR ---
PT SLEEPING ON HIS LEFT SIDE. REGULAR RESPIRATIONS NOTED.
--- NOTE | 2025-03-17 05:37 | NUR ---
PATIENT CURRENTLY SLEEPING. REGULAR RESPIRATIONS NOTED.
--- NOTE | 2025-03-17 05:45 | NUR ---
PATIENT WOKE STATING HE NEEDS PAIN MEDICATIONS. VITALS TAKEN BY CAM MAKER. PAIN MEDICATIONS GIVEN WITH CRACKERS. WATER AT BEDSIDE. TV ON.
--- NOTE | 2025-03-17 05:46 | NUR ---
PT IN RIGHT SIDE LYING POSITION. VITALS DONE, WATER REFILLED. CALL LIGHT IN REACH, NO NEEDS AT THIS TIME.
--- NOTE | 2025-03-17 07:03 | NUR ---
RECIEVED REPORT FROM KVNG REYNAGA. PT RESTING IN BED WITH EYES CLOSED, CALL LIGHT WITHIN REACH.
[2025-03-17] MEDS ORDERED: PANTOPRAZOLE SODIUM 40 MG TABEC PO SCH (09:00)
--- NOTE | 2025-03-17 10:39 | NUR ---
PT SITTING UP IN BED, WITH IPAD. EMPTIED URINAL AND TOOK OUT TRASH. PT HAS FRESH ICE WATER BY BED AND THE CALL LIGHT WITHIN REACH. PT REPORTS NEEDING NOTHING MORE AT THIS TIME.
--- NOTE | 2025-03-17 12:16 | NUR ---
PHYSICAL THERAPY TO BEDSIDE, CALL LIGHT WITHIN REACH.
--- NOTE | 2025-03-17 14:01 | NUR ---
EDUCATION ON PROTEIN INTAKE, ENSURE GIVEN. PT DENIES FURTHER NEEDS AT THIS TIME. CALL LIGHT WITHIN REACH.
--- NOTE | 2025-03-17 14:32 | NUR ---
PT IN CHAIR, PLAYING ON HIS IPAD. NO VISITORS IN THE ROOM. PT ATE MORE LUNCH THAN PREVIOUS AND IS STILL DRINKING HIS ENSURE. PT HAS FRESH ICE WATER, REQUESTED, AND REPORTS NEEDING NOTHING MORE AT THIS TIME. CALL LIGHT IS WITHIN REACH OF PT.
--- NOTE | 2025-03-17 14:40 | NUR ---
COMPLETE LINEN CHANGE, FRESH ICE WATER AND TOOK ROOM TRASH OUT OF ROOM. CLEANED UP ROOM.
--- NOTE | 2025-03-17 16:20 | NUR ---
THIS PT AND I DISCUSSED SHOWERING TODAY - HE HAD ASKED HIS NURSE IF HE COULD SHOWER- THIS PT AND THIS UPHOLSTERY HANDLER DECIDED ON 4PM. AT 4PM I OPENED THE PT'S DOOR HOLDING THE SHOWER CHAIR, THERE IS NOT A SHOWER CHAIR IN THE PT'S ROOM, AND THE PT WAS SITTING IN THE CHAIR WITH HIS GOWN UP, SHOWING HIS BRIEF, HALF ON, HALF OFF, AND STATED TO ME THAT HE WAS ON AN IMPORTANT PHONE CALL AND TO COME BACK. I WAITED ABOUT 10-15 MINUTES, WENT BACK IN AND THE PT SAID HE WANTED TO WAIT TO SHOWER UNTIL TOMORROW. I PUT THE SHOWER CHAIR IN THE BATHROOM AND PLACED BODY WASH ALSO IN THE SHOWER, READY TO GO.
--- NOTE | 2025-03-17 18:14 | NUR ---
PT BACK IN BED, HEAD UP, WATCHING TV. ROOM LIGHTS ARE ON AND THERE ARE NO VISITORS IN THE ROOM. PT DID NOT EAT A LOT OF DINNER, BUT DID FINISH THE ENSURE SUPPLEMENT HE HAD FOR LUNCH AND IS DRINKING THE ENSURE THAT CAME WITH HIS DINNER. PT HAS AN IPAD AND A CELL PHONE NEXT TO HIM ON THE BED AND THE CALL LIGHT ALSO WITHIN REACH. GOT PT FRESH ICE WATER AND EMPTIED THE TRASHES IN THE ROOM. PT REPORTED THAT HE WILL SHOWER TOMORROW MORNING AND THAT HE DOES NOT NEED ANYTHING ELSE RIGHT NOW.
--- NOTE | 2025-03-17 18:18 | NUR ---
PT RETURNED TO HIS BED FROM THE CHAIR TO THE BED. PT REPORTED NPO DIZZINESS WHEN AMBULATING. THE WALKER WAS USED DURING AMBULATION, AND THIS DIRECTOR OF BANDS WAS SBA ONLY. GOT PT FRESH ICE WATER, REQUESTED. PT HAS CALL LIGHT ON THE BED NEXT TO HIS RIGHT SIDE. PT REPORTS NEEDING NOTHING MORE. EMPTIED TRASH IN ROOM.
--- NOTE | 2025-03-17 19:34 | NUR ---
Patient awake in bed, alert and oriented x3, no distress. Patient reports 5/10 back pain, admin two tabs norco 5/325mg po at this time. Vital signs are stable, afebrile.
--- NOTE | 2025-03-17 21:16 | NUR ---
Patient in bed watching tv, no distress. Fresh water at bedside. Personal supplies and call light within reach.
--- NOTE | 2025-03-17 21:33 | NUR ---
Urinal emptied, 300ml clear yellow urine noted. Patient watching tv, no distress.
--- NOTE | 2025-03-17 23:41 | NUR ---
Resting, on room air, repositions self in bed. SL patent
--- NOTE | 2025-03-18 00:04 | NUR ---
pt used call light, c/o 01/23 sciatic pain. Medicated with 2 norco. Repositions self in bed
[2025-03-18 05:59] VITALS: BP 116/64
--- NOTE | 2025-03-18 06:04 | NUR ---
VS AND I&O COMPLETED. ICE WATER PROVIDED. PT STATES NO OTHER NEEDS. CALL LIGHT IN REACH.
--- NOTE | 2025-03-18 07:10 | NUR ---
AWAITING FINAL SAY FROM INSURANCE. DID RECEIVE NOTIFICATION FROM [facility] 03/15/25 THAT THEY DENIED SNF A SECOND TIME AND THEY WERE GOING TO CONTACT THE PATIENT. UPDATED NOTES FAXED TO [facility] THIS AM.
--- NOTE | 2025-03-18 07:43 | NUR ---
PT RESTING EYES CLOSED AT TIME OF SHIFT REPORT. LEFT UNDISTURBED WITH CALL LIGHT AND NEEDED ITEMS IN REACH.
--- NOTE | 2025-03-18 08:17 | NUR ---
PT AWAKENED FOR MORNING MEAL AND MEDICATIONS. DECLINES BREAKFAST REQUESTS JUST COFFEE. PT ENCOURAGED TO EAT SOMETHING SO VITAMINS AND MEDS DO NOT UPSET HIS STOMACH. PT AGREES, REQUESTS MEDS BE LEFT TRAYSIDE "WHILE I WAKE UP A LITTLE" PT STATES HE WILL TAKE MEDS SOON. HE DOES NOT REPORT ANY DISCOMFORTS IS SITTING UP WATCHING TV
--- NOTE | 2025-03-18 08:18 | NUR ---
PATIENT ALERT AND ORIENTED IN BED. INFORMED HIM INSURANCE IS STILL DENYING AUTH FOR SNF. VERBALIZES UNDERSTANDING. STATES "THEY CAN'T KEEP ME OUT OF MY HOUSE, I'M JUST PLANNING ON GOING HOME SINCE I CAN'T GO ANYWHERE ELSE." STATES HE PLANS ON EATING BREAKFAST, SHOWERING AND GOING WHERE HE NEEDS TO TODAY.
--- NOTE | 2025-03-18 08:26 | NUR ---
SPOKE WITH [facility] PER PATIENT REQUEST. QUESTIONS ANSWERED. STATES SHE IS GOING TO CALL PATIENT AND SPEAK WITH HIM REGARDING DISCHARGE.
--- NOTE | 2025-03-18 09:04 | NUR ---
PT STATES PATIENT WILL NEED A WALKER. PATIENT STATES HE HAS A WALKER AT HOME THAT SAMY LEFT FOR HIM.
[2025-03-18 09:07] VITALS: BP 136/87
[2025-03-18 09:11] VITALS: BP 136/87
--- NOTE | 2025-03-18 09:12 | NUR ---
PT EATS A SMALL AMOUNT OF MORNING MEAL CONTINUES RESTING IN BED WATCHING TV. DENIES DISCOMFORTS OR NEEDS. DR CASTRO IN TO SPEAK WITH HIM, INSURANCE WILL NOT PAY FOR SNF PT PREPARED TO DC HOME. DENIES CONCERNS OR QUESTIONS.
--- NOTE | 2025-03-18 10:47 | PATH ---
[facility] [address] [place], [place] [address] Signed THIS IS AN ADDENDUM REPORT SPECIMEN(S): A ANTRUM BIOPSY SPECIMEN(S): B DISTAL ESOPHAGEAL BIOPSY SPECIMEN SOURCE: A. ANTRUM BIOPSY B. DISTAL ESOPHAGEAL BIOPSY CLINICAL HISTORY: Melena, mild gastritis, see scanned requisition FINAL PATHOLOGIC DIAGNOSIS: A. Antrum biopsy: - Gastric mucosa with focal acute and chronic gastritis. - Helicobacter pylori immunostain is pending and will be reported in an addendum. B. Distal esophageal biopsy: - Benign esophageal epithelium, negative for increased epithelial eosinophils. - Negative for glandular mucosa. VR MICROSCOPIC EXAMINATION: Histologic sections of all submitted blocks are examined by light microscopy. These findings, together with the gross examination, support the pathologic diagnosis. GROSS DESCRIPTION: A. The specimen, labeled and designated "Hyun, antrum biopsy," is received in formalin and consists of two suarez soft tissue fragments, ranging from 0.3-0.7 cm. Entirely submitted in (A1). B. The specimen, labeled and designated "Hyun, distal esophageal biopsy," is received in formalin and consists of two suarez soft tissue fragments, ranging from 0.1-0.4 cm. Entirely submitted in (B1). VB (under the direct supervision of a pathologist) The Gross Description was prepared using a voice recognition system. The report was reviewed for accuracy; however, sound-alike word errors, addition and/or deletions may occur. If there is any question about this report, please contact Client Services. ADDITIONAL NOTES: PATIENT NAME: DIXIE OTOOLE PATHOLOGY DATE OF : 51 REPORT #: [id number] PHYSICIAN: JUVE[facility] PATHOLOGY PCP: DALTON GODOY MD REPORT IS CONFIDENTIAL AND NOT TO BE RELEASED WITHOUT AUTHORIZATION [facility] [address] [place], [place] [address] Signed Immunohistochemical and/or in situ hybridization studies if performed in this case included appropriate positive controls that reacted as expected. This test was developed and its performance characteristics determined by [facility]. It has not been cleared or approved by the U.S. Food and Drug Administration. The FDA has determined that such clearance or approval is not necessary. This test is used for clinical purposes. It should not be regarded as investigational or for research. [facility] is certified under the Clinical Laboratory Improvement Amendments of 1988 (CLIA) as qualified to perform high complexity clinical laboratory testing. PERFORMING LABORATORY: Technical component was performed by [facility], [address] [place] [id number] (CLIA# [id number]). Professional interpretation was performed by [facility] - [address] [place] [address] (CLIA#: [id number]). ADDITIONAL NOTES: Immunohistochemical and/or in situ hybridization studies were performed on this case with the appropriate positive controls that react as expected. This test was developed and its performance characteristics determined by [facility]. It has not been cleared or approved by the U.S. Food and Drug Administration. The FDA has determined that such clearance or approval is not necessary. This test is used for clinical purposes. It should not be regarded as investigational or for research. [facility] is certified under the Clinical Laboratory Improvement Amendments of 1988 (CLIA) as qualified to perform high complexity clinical laboratory testing. This assay has not been validated for specimens that have been decalcified The technical component was performed by [facility], [address] [place] [id number] (CLIA# [id number]). Professional interpretation was performed by [facility], [address] [place] [place] [address] (CLIA#: [id number]). REASON FOR ADDENDUM: To add results of additional testing. ADDENDUM COMMENT: PATIENT NAME: DIXIE OTOOLE PATHOLOGY DATE OF : 51 REPORT #: [id number] PHYSICIAN: [facility] PCP: DALTON GODOY MD REPORT IS CONFIDENTIAL AND NOT TO BE RELEASED WITHOUT AUTHORIZATION [facility] [address] [place], [place] [address] Signed Negative for Helicobacter pylori by IHC stain run with adequate control (block A1). DWS:clv Diagnostician: Arden Nava MD Pathologist Diagnostician: Anant Carter MD Pathologist Electronically Signed 03/18/2025 Copies: ~ PATIENT NAME: DIXIE OTOOLE PATHOLOGY DATE OF : 51 REPORT #: [id number] PHYSICIAN: JUVENAL PATHOLOGY PCP: DALTON GODOY MD REPORT IS CONFIDENTIAL AND NOT TO BE RELEASED WITHOUT AUTHORIZATION
[2025-03-18 10:51] VITALS: BP 99/61
--- NOTE | 2025-03-18 11:27 | NUR ---
HOURLY ROUNDING PATIENT WAITING FOR RIDE TO COME. NO REQUEST FROMPATIENT AT THSI TIME CALL LIGHT HAS BEEN PLACED WITHIN REACH
--- NOTE | 2025-03-18 11:39 | NUR ---
PT RESTING EYES CLOSED BED ALARM IS ON FALL MATS IN PLACE. CALL LIGHT IN LAP
--- NOTE | 2025-03-19 14:29 | NUR ---
REFERRAL FOR HOME HEALTH FAXED TO [facility].
== END 2025-03-18 11:45 | disposition home or self-care (01) | DRG 369 ==
LOC: ED 19:24 → MS 03-12 13:18
PROVIDERS: Internal Medicine; Surgery; ADMIT Student in an Organized Health Care Education/Training Program; ATTEND Student in an Organized Health Care Education/Training Program
PROC: 0DB78ZX Excision of Stomach, Pylorus, Via Natural or Artificial Opening Endoscopic, Diagnostic (ICD-10-PCS; 2025-03-13)
PROC: 0DB38ZX Excision of Lower Esophagus, Via Natural or Artificial Opening Endoscopic, Diagnostic (ICD-10-PCS; principal; 2025-03-13 12:30)
PROC: 0DJD8ZZ Inspection of Lower Intestinal Tract, Via Natural or Artificial Opening Endoscopic (ICD-10-PCS; 2025-03-14)
PROC: 3E03329 Introduction of Other Anti-infective into Peripheral Vein, Percutaneous Approach (ICD-10-PCS; 2025-03-14)
PROC: HZ2ZZZZ Detoxification Services for Substance Abuse Treatment (ICD-10-PCS; 2025-03-14)
DX: K22.6 Gastro-esophageal laceration-hemorrhage syndrome (principal); F03.93 Unspecified dementia, unspecified severity, with mood disturbance; F10.239 Alcohol dependence with withdrawal, unspecified; K57.31 Diverticulosis of large intestine without perforation or abscess with bleeding; R53.1 Weakness; M16.11 Unilateral primary osteoarthritis, right hip; M50.30 Other cervical disc degeneration, unspecified cervical region; R29.6 Repeated falls; E11.9 Type 2 diabetes mellitus without complications; I10 Essential (primary) hypertension; M25.532 Pain in left wrist; R62.7 Adult failure to thrive; K44.9 Diaphragmatic hernia without obstruction or gangrene; K64.8 Other hemorrhoids; E86.0 Dehydration; N40.0 Benign prostatic hyperplasia without lower urinary tract symptoms; F41.1 Generalized anxiety disorder; E78.5 Hyperlipidemia, unspecified; M10.9 Gout, unspecified; M54.50 Low back pain, unspecified; G89.29 Other chronic pain; Z87.19 Personal history of other diseases of the digestive system; Z87.891 Personal history of nicotine dependence; Z98.890 Other specified postprocedural states; Z79.899 Other long term (current) drug therapy; Z90.49 Acquired absence of other specified parts of digestive tract; Z68.26 Body mass index [BMI] 26.0-26.9, adult
CPT/HCPCS: 00811; 00813; 36415; 70450; 73030; 73110; 80048; 80053; 81001; 82550; 82607; 83735; 84100; 84443; 84484; 85014; 85018; 85025; 85610; 85730; 86850; 86900; 86901; 92507; 92523; 93005; 93010; 97116; 97161; 97165; 97530; 97535; A9270; J0330; J0688; J1100; J1885; J2003; J2270; J2405; J2470; J2704; J3010; J3411; J3475; J3490; J7060; J7121; Q0177

== ENCOUNTER 2025-03-18 13:48 | Emergency (ER) | payer BC ==
[~2025-03-18] VITALS: Ht 172.7 cm; Wt 78.1 kg
[~2025-03-18 13:48] MED LIST changes: +CELEBREX200 MG PO
--- OUTSIDE RECORDS SUMMARY | 2025-03-18 13:54 | XMS ---
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 Jaden has no Care Guidelines for this patient. [facility]12 MO.) [facility] T[facility] NOTE: Visits indicate total known visits. ED/[facility] VISIT TRACKING (12 MO.) 03/18/2025 13:48 [facility] [place] TYPE: Emergency COMPLAINT: - NEAR SYNCOPE 03/11/2025 19:25 [facility] TYPE: Emergency COMPLAINT: - FALL 03/10/2025 12:00 [facility] TYPE: Emergency COMPLAINT: - WEAKNESS DIAGNOSES: - Essential (primary) hypertension - Headache, unspecified - Personal history of nicotine dependence - Type 2 diabetes mellitus without complications - Weakness INPATIENT VISIT TRACKING (12 MO.) 03/12/2025 13:18 [facility] [place] TYPE: Medical Surgical COMPLAINT: - WEAKNESS/ FTT [email or web address]
[2025-03-18] MEDS ORDERED: IBLOOD GLUCOSE TEST STRIP 1 EA TEST XX ONE (14:00)
[2025-03-18 14:19] LABS: BASOPHILS 0.5 % (0.2-1.2); EOSINOPHILS 1.2 % (0.8-7.0); LYMPHOCYTES 8.7 % (21.8-53.1); MCH 30.1 PG (25.7-32.2); MCHC 33.5 g/dL (32.3-36.5); MCV 90.0 fL (79.0-92.2); MONOCYTES 7.4 % (5.3-12.2); NEUTROPHILS 81.7 % (34.0-67.9); RBC 5.01 M/uL (4.63-6.08)
[2025-03-18 14:41] LABS: ALT (SGPT) 36.0 U/L (14-59); AST (SGOT) 28.0 U/L (15-37); GLOMERULAR FILTRATION RATE,EST 73.0 mL/min (>60); PROTEIN, TOTAL 6.8 g/dL (6.4-8.2); UREA NITROGEN 20.0 mg/dL (7-18)
[2025-03-18] MEDS ORDERED: TRAMADOL HCL 50 MG TAB PO PRN (22:15)
[2025-03-19 10:45] VITALS: BP 123/84
--- NOTE | 2025-03-19 22:27 | EKG ---
[facility] [address] [place] [address] Signed Sinus rhythm with occasional premature ventricular complexes Septal infarct (cited on or before 17-OCT-2022) Abnormal ECG When compared with ECG of 11-MAR-2025 19:55, No significant change was found Confirmed by Sherrie Valdivia MD () on 03/19/2025 10:27:08 PM Electronically Signed By: SHERRIE VALDIVIA MD 03/19/25 2227 PATIENT NAME: DIXIE OTOOLE Oneil Electrocardiogram DATE OF : 51 PHYSICIAN: SHERRIE VALDIVIA MD REPORT #: [id number] REPORT IS CONFIDENTIAL AND NOT TO BE RELEASED WITHOUT AUTHORIZATION
== END 2025-03-19 11:34 | disposition home or self-care (01) ==
LOC: ED 13:48
PROVIDERS: Emergency Medicine
DX: R53.1 Weakness (principal); I10 Essential (primary) hypertension; E11.9 Type 2 diabetes mellitus without complications; Z87.891 Personal history of nicotine dependence; Z79.899 Other long term (current) drug therapy; W18.30XA Fall on same level, unspecified, initial encounter; Y92.009 Unspecified place in unspecified non-institutional (private) residence as the place of occurrence of the external cause
CPT/HCPCS: 36415; 73502; 80053; 83735; 84484; 85025; 93005; 93010; 97161; 97530; 99285